=== PATIENT | male | born 1945 | race African-American/Black ===

== ENCOUNTER 2019-11-02 22:26 | Inpatient (IN) ==
[2019-11-02] MEDS ORDERED: Ondansetron ODT 4 MG TAB.RAPDIS SL ONE (22:49)
[2019-11-02 23:19] LABS: Basophils % 0.1 %; Eosinophils # 0.1 K/mcL (0.0-0.6); Eosinophils % 0.9 %; Hematocrit 36.1 % (37.5-50.1); Hemoglobin 10.9 g/dL (12.9-16.9); Immature Granulocytes % 0.3 % (0-4); Lymphocytes # 0.8 K/mcL (0.6-4.6); Lymphocytes % 8.1 %; Mean Corpuscular HGB Conc 30.2 g/dL (31.6-35.5); Mean Corpuscular Hemoglobin 25.5 pg (28.0-33.3); Mean Corpuscular Volume 84.3 fL (83.0-100.0); Mean Platelet Volume 10.4 fL (9.4-12.4); Monocytes % 10.1 %; Neutrophils # 8.1 K/mcL (1.6-8.9); Platelet Count 241 K/mcL (140-400); Red Blood Count 4.28 M/mcL (4.19-5.50); Red Cell Distribution Width 16.2 % (11.5-14.5); Segmented Neutrophils % 80.5 %; White Blood Count 10.1 K/mcL (4.3-11.1)
[2019-11-02 23:37] LABS: Calcium 9.8 mg/dL (8.6-10.3); Potassium 4.7 mEq/L (3.5-5.1)
[2019-11-02 23:45] LABS: INR 1.1; Prothrombin Time 12.6 Seconds (9.4-12.1)
[2019-11-02 23:47] LABS: Activated Partial Thrombo Time 33.5 Seconds (26.0-36.0)
[2019-11-03] MEDS ORDERED: Ondansetron 4 MG/2 ML VIAL IVP PRN (00:39)
[2019-11-03] MEDS ORDERED: Acetaminophen 325 MG TABLET PO PRN (00:39)
[2019-11-03] MEDS ORDERED: *HR* HYDROcodone/Acet 5/325 mg TABLET PO PRN (00:39)
[2019-11-03] MEDS ORDERED: Naloxone 0.4 MG/ML INJ IVP PRN (00:39)
[2019-11-03] MEDS: Melatonin 3 MG TABLET PO SCH ×2 (01:47→20:58)
[2019-11-03 05:32] LABS: Basophils % 0.1 %; Eosinophils # 0.2 K/mcL (0.0-0.6); Hematocrit 32.2 % (37.5-50.1); Hemoglobin 9.8 g/dL (12.9-16.9); Immature Granulocytes % 0.4 % (0-4); Mean Corpuscular HGB Conc 30.4 g/dL (31.6-35.5); Mean Corpuscular Hemoglobin 25.4 pg (28.0-33.3); Mean Corpuscular Volume 83.4 fL (83.0-100.0); Mean Platelet Volume 10.4 fL (9.4-12.4); Monocytes # 0.8 K/mcL (0.0-1.3); Monocytes % 9.8 %; Neutrophils # 6.2 K/mcL (1.6-8.9); Platelet Count 239 K/mcL (140-400); Red Blood Count 3.86 M/mcL (4.19-5.50); Red Cell Distribution Width 15.9 % (11.5-14.5); Segmented Neutrophils % 75.7 %; White Blood Count 8.2 K/mcL (4.3-11.1)
[2019-11-03 05:53] LABS: Calcium 9.2 mg/dL (8.6-10.3); Magnesium 2.1 mg/dL (1.6-2.6); Phosphorous 3.2 mg/dL (2.7-4.5); Potassium 4.8 mEq/L (3.5-5.1)
[2019-11-03] MEDS: *HR* Heparin 5,000 UNIT/ML VIAL SQ SCH ×2 (06:01→17:46)
[2019-11-03 08:39] LABS: Hepatitis B Surface Antigen Nonreactive (Nonreactive)
[2019-11-03] MEDS ORDERED: cloNIDine HCL 0.1 MG TABLET PO SCH (09:00)
[2019-11-03] MEDS: cloNIDine HCL 0.1 MG TABLET PO SCH ×2 (09:42→20:59)
[2019-11-03] MEDS: risperiDONE 1 MG TABLET PO SCH ×2 (09:43→20:59)
[2019-11-03] MEDS: polyethylene glycoL 3350 17 GM POWD.PACK PO SCH (09:51)
[2019-11-03] MEDS: Insulin LISPRO 300 UNITS/3 ML VIAL SQ SCH (16:27)
[2019-11-03] MEDS ORDERED: Insulin LISPRO 300 UNITS/3 ML VIAL SQ SCH (21:00)
[2019-11-04 02:01] LABS: Basophils % 0.3 %; Eosinophils # 0.4 K/mcL (0.0-0.6); Eosinophils % 5.4 %; Hematocrit 29.1 % (37.5-50.1); Immature Granulocytes % 0.5 % (0-4); Lymphocytes # 0.9 K/mcL (0.6-4.6); Lymphocytes % 13.8 %; Mean Corpuscular HGB Conc 30.9 g/dL (31.6-35.5); Mean Corpuscular Hemoglobin 25.6 pg (28.0-33.3); Mean Corpuscular Volume 82.9 fL (83.0-100.0); Mean Platelet Volume 10.6 fL (9.4-12.4); Monocytes % 14.6 %; Neutrophils # 4.3 K/mcL (1.6-8.9); Platelet Count 209 K/mcL (140-400); Red Blood Count 3.51 M/mcL (4.19-5.50); Red Cell Distribution Width 15.5 % (11.5-14.5); Segmented Neutrophils % 65.4 %; White Blood Count 6.5 K/mcL (4.3-11.1)
[2019-11-04 02:21] LABS: Calcium 8.7 mg/dL (8.6-10.3); Phosphorous 4.4 mg/dL (2.7-4.5); Potassium 5.2 mEq/L (3.5-5.1)
[2019-11-04] MEDS: *HR* Heparin 5,000 UNIT/ML VIAL SQ SCH (05:02)
[2019-11-04] MEDS ORDERED: Lidocaine -MPF 4% 5 ML AMPUL ONE (07:19)
[2019-11-04] MEDS ORDERED: Dexamethasone 4 MG/ML VIAL ONE (07:19)
[2019-11-04] MEDS ORDERED: *HR* Succinylcholine 200 MG/10 ML VIAL IVP ONE (07:19)
[2019-11-04] MEDS ORDERED: *HR* Propofol 200 MG/20 ML VIAL IVP ONE (07:19)
[2019-11-04] MEDS ORDERED: *HR* FentaNYL (PF) 100 MCG/2 ML VIAL ONE (07:19)
[2019-11-04] MEDS ORDERED: Lidocaine -MPF 2% 2 ML VIAL ONE (07:19)
[2019-11-04] MEDS ORDERED: Ondansetron 4 MG/2 ML VIAL ONE (07:19)
[2019-11-04] MEDS ORDERED: Ethanol\\Acetic Acid\\Na Ace\\Ben 1,000 ML IRRIG.SOLN IR ONE (07:21)
[2019-11-04] MEDS ORDERED: *HR* Vasopressin 20 UNIT/ML VIAL ONE (07:25)
[2019-11-04] MEDS ORDERED: CeFAZolin Syr 2,000MG/20 ML 2,000 MG/20 ML SYRINGE IVPB ONE (07:45)
[2019-11-04] MEDS ORDERED: *HR* Phenylephrine 10 MG/ML VIAL ONE (08:11)
[2019-11-04] MEDS ORDERED: Albumin Human 5% 12.5 GM/250 ML IV.SOLN ONE (08:15)
[2019-11-04] MEDS ORDERED: *HR* PHENYLEPHRINE 1,000 MCG/10 ML SYRINGE IVP ONE (08:25)
[2019-11-04] MEDS ORDERED: Ringers Solution, Lactated 1,000 ML ONE (09:39)
[2019-11-04] MEDS ORDERED: *HR* Promethazine 25 MG/ML VIAL IVP PRN (09:41)
[2019-11-04] MEDS ORDERED: *HR* Dextrose 50 % in Water (Syg) 50 ML SYRINGE IVP PRN (09:41)
[2019-11-04] MEDS ORDERED: D5% in Water 1,000 ML IVC PRN (09:41)
[2019-11-04] MEDS ORDERED: Ondansetron 4 MG/2 ML VIAL IVP PRN (09:41)
[2019-11-04] MEDS ORDERED: Naloxone 0.4 MG/ML INJ IVP PRN (09:41)
[2019-11-04] MEDS ORDERED: Sennosides 8.6 MG TABLET PO PRN (09:41)
[2019-11-04] MEDS ORDERED: MOM Conc 10 ML UD.LIQ PO PRN (09:41)
[2019-11-04] MEDS ORDERED: *HR* OxyCODONE Immed Rel 5 MG TABLET PO PRN (09:41)
[2019-11-04] MEDS ORDERED: HYDROcodone BIT/Homatropine 5 MG TABLET PO PRN (09:41)
[2019-11-04] MEDS ORDERED: Dextrose Gel 15 GM/37.5 ML TUBE PO PRN ×2 (09:41)
[2019-11-04] MEDS: Multivit/Ca/Min/Fe/FA 1 TAB TABLET PO SCH (11:16)
[2019-11-04] MEDS: Ascorbic Acid 500 MG TABLET PO SCH ×2 (11:16→17:09)
[2019-11-04] MEDS ORDERED: 0.9 % Sodium Chloride 250 ML IVC PRN (12:01)
[2019-11-04] MEDS ORDERED: 0.9 % Sodium Chloride 1,000 ML ONE (12:11)
[2019-11-04] MEDS ORDERED: 0.9 % Sodium Chloride 1,000 ML PRIME SCH (12:15)
[2019-11-04] MEDS: Insulin LISPRO 300 UNITS/3 ML VIAL SQ SCH ×4 (14:06→21:33)
[2019-11-04] MEDS: ceFAZolin 2,000 MG in 0.9 % Sodium Chloride 100 ML IVPB SCH ×2 (17:09→23:20)
[2019-11-04] MEDS: risperiDONE 1 MG TABLET PO SCH ×2 (20:53→21:34)
[2019-11-04] MEDS: Melatonin 3 MG TABLET PO SCH (20:54)
[2019-11-04] MEDS: cloNIDine HCL 0.1 MG TABLET PO SCH ×2 (20:54→21:33)
[2019-11-04] MEDS ORDERED: cloNIDine HCL 0.1 MG TABLET PO SCH (21:00)
[2019-11-04] MEDS: Ringers Solution, Lactated 1,000 ML IVC SCH ×2 (21:33→23:53)
[2019-11-04] MEDS: polyethylene glycoL 3350 17 GM POWD.PACK PO SCH (21:33)
[2019-11-05 02:00] LABS: Basophils % 0.2 %; Eosinophils # 0.1 K/mcL (0.0-0.6); Hematocrit 26.2 % (37.5-50.1); Hemoglobin 8.1 g/dL (12.9-16.9); Immature Granulocytes % 0.7 % (0-4); Lymphocytes # 0.7 K/mcL (0.6-4.6); Lymphocytes % 8.2 %; Mean Corpuscular HGB Conc 30.9 g/dL (31.6-35.5); Mean Corpuscular Hemoglobin 25.6 pg (28.0-33.3); Mean Corpuscular Volume 82.9 fL (83.0-100.0); Mean Platelet Volume 10.9 fL (9.4-12.4); Monocytes # 1.4 K/mcL (0.0-1.3); Monocytes % 17.2 %; Neutrophils # 6.1 K/mcL (1.6-8.9); Platelet Count 193 K/mcL (140-400); Red Blood Count 3.16 M/mcL (4.19-5.50); Red Cell Distribution Width 15.6 % (11.5-14.5); Segmented Neutrophils % 72.7 %; White Blood Count 8.4 K/mcL (4.3-11.1)
[2019-11-05 02:13] LABS: Calcium 8.7 mg/dL (8.6-10.3); Potassium 4.8 mEq/L (3.5-5.1)
[2019-11-05] MEDS: Acetaminophen 325 MG TABLET PO PRN (04:16)
[2019-11-05] MEDS: polyethylene glycoL 3350 17 GM POWD.PACK PO SCH (08:06)
[2019-11-05] MEDS: risperiDONE 1 MG TABLET PO SCH ×2 (08:08→21:29)
[2019-11-05] MEDS: Multivit/Ca/Min/Fe/FA 1 TAB TABLET PO SCH (08:09)
[2019-11-05] MEDS: Ascorbic Acid 500 MG TABLET PO SCH ×2 (08:09→18:24)
[2019-11-05] MEDS: Aspirin Enteric Coated 81 MG Tablet PO SCH ×2 (08:09→08:38)
[2019-11-05] MEDS: cloNIDine HCL 0.1 MG TABLET PO SCH (08:09)
[2019-11-05] MEDS: Insulin LISPRO 300 UNITS/3 ML VIAL SQ SCH ×4 (08:10→21:11)
[2019-11-05] MEDS ORDERED: cloNIDine HCL 0.1 MG TABLET PO PRN (15:27)
[2019-11-05] MEDS ORDERED: 0.9 % Sodium Chloride 1,000 ML IVC SCH (15:30)
[2019-11-05] MEDS: Ringers Solution, Lactated 1,000 ML IVC SCH (21:27)
[2019-11-05] MEDS: Melatonin 3 MG TABLET PO SCH (21:29)
[2019-11-06 00:56] LABS: Basophils % 0.2 %; Eosinophils # 0.4 K/mcL (0.0-0.6); Eosinophils % 4.5 %; Hemoglobin 7.2 g/dL (12.9-16.9); Immature Granulocytes % 0.7 % (0-4); Lymphocytes # 1.2 K/mcL (0.6-4.6); Lymphocytes % 14.3 %; Mean Corpuscular HGB Conc 31.3 g/dL (31.6-35.5); Mean Corpuscular Hemoglobin 25.2 pg (28.0-33.3); Mean Corpuscular Volume 80.4 fL (83.0-100.0); Mean Platelet Volume 10.3 fL (9.4-12.4); Monocytes # 1.7 K/mcL (0.0-1.3); Monocytes % 19.8 %; Neutrophils # 5.1 K/mcL (1.6-8.9); Platelet Count 180 K/mcL (140-400); Red Blood Count 2.86 M/mcL (4.19-5.50); Red Cell Distribution Width 15.5 % (11.5-14.5); Segmented Neutrophils % 60.5 %; White Blood Count 8.4 K/mcL (4.3-11.1)
[2019-11-06 01:13] LABS: Calcium 8.9 mg/dL (8.6-10.3)
[2019-11-06 01:19] LABS: Platelet Estimate Decreased (Normal); Target Cells 2+ (Not Present)
[2019-11-06] MEDS: Ringers Solution, Lactated 1,000 ML IVC SCH (02:56)
[2019-11-06] MEDS ORDERED: 0.9 % Sodium Chloride 250 ML IVC PRN (07:47)
[2019-11-06] MEDS ORDERED: 0.9 % Sodium Chloride 1,000 ML PRIME SCH (08:00)
[2019-11-06] MEDS: Insulin LISPRO 300 UNITS/3 ML VIAL SQ SCH ×4 (08:32→21:19)
[2019-11-06] MEDS: Ascorbic Acid 500 MG TABLET PO SCH ×2 (08:34→17:50)
[2019-11-06] MEDS: Aspirin Enteric Coated 81 MG Tablet PO SCH (08:35)
[2019-11-06] MEDS: risperiDONE 1 MG TABLET PO SCH ×2 (08:36→21:16)
[2019-11-06] MEDS: polyethylene glycoL 3350 17 GM POWD.PACK PO SCH (08:36)
[2019-11-06] MEDS: Multivit/Ca/Min/Fe/FA 1 TAB TABLET PO SCH (08:37)
[2019-11-06 14:02] LABS: Hematocrit 28.7 % (37.5-50.1); Hemoglobin 8.7 g/dL (12.9-16.9)
[2019-11-06] MEDS: Acetaminophen 325 MG TABLET PO PRN (17:51)
[2019-11-06] MEDS: Melatonin 3 MG TABLET PO SCH (21:16)
[2019-11-07 02:30] LABS: Hematocrit 25.9 % (37.5-50.1); Hemoglobin 7.9 g/dL (12.9-16.9)
[2019-11-07 02:50] LABS: Potassium 4.7 mEq/L (3.5-5.1)
[2019-11-07] MEDS: Insulin LISPRO 300 UNITS/3 ML VIAL SQ SCH (07:57)
[2019-11-07] MEDS: Multivit/Ca/Min/Fe/FA 1 TAB TABLET PO SCH (09:19)
[2019-11-07] MEDS: Aspirin Enteric Coated 81 MG Tablet PO SCH (09:20)
[2019-11-07] MEDS: risperiDONE 1 MG TABLET PO SCH (09:20)
[2019-11-07] MEDS: Ascorbic Acid 500 MG TABLET PO SCH (09:20)
[2019-11-07] MEDS: polyethylene glycoL 3350 17 GM POWD.PACK PO SCH (09:20)
[2019-11-07 09:33] LABS: Hematocrit 25.8 % (37.5-50.1)
[2019-11-07 11:28] VITALS: BP 126/77
[2019-11-07] MEDS ORDERED: Insulin LISPRO 300 UNITS/3 ML VIAL SQ SCH ×2 (11:38)
== END 2019-11-07 13:46 | disposition short-term general hospital (02) | DRG 469 ==
LOC: EMEROOARM 22:26 → 3NENU 22:26 → SUATTDRO 11-03 00:10 → 3NENU 11-03 00:51 → SUATTDRO 11-03 10:55
PROVIDERS: ADMIT Family Medicine; ATTEND Family Medicine

== ENCOUNTER 2019-11-18 10:05 | Inpatient (IN) ==
[2019-11-18 10:47] LABS: INR 1.1; Prothrombin Time 12.3 Seconds (9.4-12.1)
[2019-11-18 10:57] LABS: Basophils % 0.4 %; Eosinophils # 0.4 K/mcL (0.0-0.6); Eosinophils % 3.8 %; Hematocrit 24.7 % (37.5-50.1); Hemoglobin 7.2 g/dL (12.9-16.9); Lymphocytes # 1.4 K/mcL (0.6-4.6); Lymphocytes % 14.1 %; Mean Corpuscular HGB Conc 29.1 g/dL (31.6-35.5); Mean Corpuscular Hemoglobin 24.9 pg (28.0-33.3); Mean Corpuscular Volume 85.5 fL (83.0-100.0); Mean Platelet Volume 9.5 fL (9.4-12.4); Monocytes # 1.5 K/mcL (0.0-1.3); Neutrophils # 6.2 K/mcL (1.6-8.9); Platelet Count 482 K/mcL (140-400); Red Blood Count 2.89 M/mcL (4.19-5.50); Red Cell Distribution Width 18.7 % (11.5-14.5); Segmented Neutrophils % 63.7 %; White Blood Count 9.7 K/mcL (4.3-11.1)
[2019-11-18 11:02] LABS: Calcium 9.5 mg/dL (8.6-10.3); Potassium 3.8 mEq/L (3.5-5.1)
[2019-11-18] MEDS ORDERED: Isovue-370 500 ML BOTTLE IVP ONE (11:04)
[2019-11-18] MEDS ORDERED: Pantoprazole 40 MG VIAL IVP ONE (12:16)
[2019-11-18] MEDS ORDERED: Naloxone 0.4 MG/ML INJ IVP PRN (13:23)
[2019-11-18] MEDS ORDERED: cloNIDine HCL 0.1 MG TABLET PO PRN (13:25)
[2019-11-18] MEDS ORDERED: *HR* OxyCODONE Immed Rel 5 MG TABLET PO PRN (13:25)
[2019-11-18] MEDS ORDERED: DOCUSATE SODIUM 100 MG RC PRN (14:44)
[2019-11-18] MEDS ORDERED: Ipratropium/Albuterol Neb 3 ML IH PRN (14:44)
[2019-11-18] MEDS ORDERED: Acetaminophen 650 MG RECTAL SUPP RC PRN (14:44)
[2019-11-18] MEDS ORDERED: Acetaminophen 325 MG TABLET PO PRN (14:44)
[2019-11-18] MEDS ORDERED: *HR* Midazolam HCl 2 MG/2 ML VIAL IVP ONE (15:11)
[2019-11-18] MEDS ORDERED: *HR* FentaNYL (PF) 100 MCG/2 ML VIAL IVP ONE (15:11)
[2019-11-18 20:31] LABS: Hematocrit 24.5 % (37.5-50.1)
[2019-11-18] MEDS: Melatonin 3 MG TABLET PO SCH (20:39)
[2019-11-18] MEDS: Docusate Oral Soln 100 MG/10 ML UDC PO SCH (20:39)
[2019-11-18] MEDS: risperiDONE 1 MG TABLET PO SCH (20:41)
[2019-11-18] MEDS: GALANTAMINE HBR 12 MG PO SCH (20:42)
[2019-11-18] MEDS ORDERED: NON-FORMULARY MEDICATION 1 EACH EACH (Atorvastatin Calcium [Lipitor] 20 MG) PO SCH (21:00)
[2019-11-19 02:58] LABS: Mean Corpuscular Hemoglobin 24.7 pg (28.0-33.3); Mean Platelet Volume 9.6 fL (9.4-12.4); Red Cell Distribution Width 18.8 % (11.5-14.5)
[2019-11-19 02:59] LABS: Hematocrit 24.2 % (37.5-50.1); Mean Corpuscular HGB Conc 28.9 g/dL (31.6-35.5); Mean Corpuscular Volume 85.5 fL (83.0-100.0); Platelet Count 451 K/mcL (140-400); Red Blood Count 2.83 M/mcL (4.19-5.50); White Blood Count 9.5 K/mcL (4.3-11.1)
[2019-11-19 03:14] LABS: Calcium 9.4 mg/dL (8.6-10.3); Magnesium 2.3 mg/dL (1.6-2.6); Potassium 4.3 mEq/L (3.5-5.1)
[2019-11-19] MEDS ORDERED: Pantoprazole 40 MG VIAL IVP SCH (06:00)
[2019-11-19] MEDS: risperiDONE 1 MG TABLET PO SCH (08:11)
[2019-11-19] MEDS: Docusate Oral Soln 100 MG/10 ML UDC PO SCH ×2 (08:12→21:41)
[2019-11-19] MEDS: polyethylene glycoL 3350 17 GM POWD.PACK PO SCH (08:12)
[2019-11-19] MEDS: GALANTAMINE HBR 12 MG PO SCH (08:12)
[2019-11-19] MEDS ORDERED: 0.9 % Sodium Chloride 250 ML ONE (11:23)
[2019-11-19 20:33] LABS: Hematocrit 27.4 % (37.5-50.1); Hemoglobin 8.1 g/dL (12.9-16.9)
[2019-11-19] MEDS: Melatonin 3 MG TABLET PO SCH (21:36)
[2019-11-20 00:43] LABS: Basophils # 0.1 K/mcL (0.0-0.2); Basophils % 0.5 %; Eosinophils # 0.3 K/mcL (0.0-0.6); Eosinophils % 2.9 %; Hematocrit 27.2 % (37.5-50.1); Hemoglobin 8.3 g/dL (12.9-16.9); Immature Granulocytes % 1.9 % (0-4); Lymphocytes # 1.2 K/mcL (0.6-4.6); Lymphocytes % 11.4 %; Mean Corpuscular HGB Conc 30.5 g/dL (31.6-35.5); Mean Corpuscular Hemoglobin 25.8 pg (28.0-33.3); Mean Corpuscular Volume 84.5 fL (83.0-100.0); Mean Platelet Volume 9.4 fL (9.4-12.4); Monocytes # 1.5 K/mcL (0.0-1.3); Monocytes % 14.3 %; Neutrophils # 7.2 K/mcL (1.6-8.9); Nucleated Red Blood Cells 0.3 /100 WBC (0); Platelet Count 415 K/mcL (140-400); Red Blood Count 3.22 M/mcL (4.19-5.50); Red Cell Distribution Width 18.1 % (11.5-14.5); White Blood Count 10.4 K/mcL (4.3-11.1)
[2019-11-20 00:56] LABS: Calcium 9.6 mg/dL (8.6-10.3); Magnesium 2.5 mg/dL (1.6-2.6); Phosphorous 6.3 mg/dL (2.7-4.5)
[2019-11-20] MEDS ORDERED: 0.9 % Sodium Chloride 250 ML IVC PRN (08:18)
[2019-11-20] MEDS ORDERED: *HR* Heparin 10,000 UNIT/10 ML VIAL IV PRN (08:18)
[2019-11-20] MEDS ORDERED: 0.9 % Sodium Chloride 1,000 ML PRIME SCH (08:30)
[2019-11-20] MEDS: polyethylene glycoL 3350 17 GM POWD.PACK PO SCH (08:45)
[2019-11-20] MEDS: Docusate Oral Soln 100 MG/10 ML UDC PO SCH (08:45)
[2019-11-20 15:28] VITALS: BP 140/72
== END 2019-11-20 14:22 | DRG 919 ==
LOC: 2ANU 10:05 → EMEROOARM 10:05 → SUATTDRO 13:23 → 2ANU 13:57
PROVIDERS: ADMIT Internal Medicine; ATTEND Internal Medicine
PROC: IRFLUID (2019-11-18 15:00)

== ENCOUNTER 2019-12-04 04:32 | Inpatient (IN) ==
[2019-12-04 05:29] LABS: Basophils % 0.4 %; Eosinophils # 0.4 K/mcL (0.0-0.6); Eosinophils % 3.5 %; Hemoglobin 7.3 g/dL (12.9-16.9); Immature Granulocytes % 0.7 % (0-4); Lymphocytes # 1.9 K/mcL (0.6-4.6); Lymphocytes % 18.9 %; Mean Corpuscular HGB Conc 29.2 g/dL (31.6-35.5); Mean Corpuscular Hemoglobin 24.5 pg (28.0-33.3); Mean Corpuscular Volume 83.9 fL (83.0-100.0); Mean Platelet Volume 9.9 fL (9.4-12.4); Monocytes # 1.6 K/mcL (0.0-1.3); Monocytes % 15.7 %; Neutrophils # 6.1 K/mcL (1.6-8.9); Nucleated Red Blood Cells 0.2 /100 WBC (0); Platelet Count 332 K/mcL (140-400); Red Blood Count 2.98 M/mcL (4.19-5.50); Red Cell Distribution Width 19.2 % (11.5-14.5); Segmented Neutrophils % 60.8 %
[2019-12-04 05:34] LABS: INR 1.1; Prothrombin Time 12.8 Seconds (9.4-12.1)
[2019-12-04 05:37] LABS: Activated Partial Thrombo Time 36.9 Seconds (26.0-36.0)
[2019-12-04 05:48] LABS: Calcium 9.5 mg/dL (8.6-10.3); Potassium 4.6 mEq/L (3.5-5.1)
[2019-12-04] MEDS ORDERED: Pantoprazole 40 MG VIAL IVP ONE (06:22)
[2019-12-04] MEDS ORDERED: 0.9 % Sodium Chloride 250 ML IVC PRN (06:55)
[2019-12-04] MEDS ORDERED: 0.9 % Sodium Chloride 1,000 ML PRIME SCH (07:00)
[2019-12-04] MEDS ORDERED: Naloxone 0.4 MG/ML INJ IVP PRN (08:06)
[2019-12-04] MEDS ORDERED: Ondansetron 4 MG/2 ML VIAL IVP PRN (08:06)
[2019-12-04] MEDS ORDERED: *HR* Dextrose 50 % in Water (Syg) 50 ML SYRINGE IVP PRN (08:10)
[2019-12-04] MEDS ORDERED: D5% in Water 1,000 ML IVC PRN (08:10)
[2019-12-04] MEDS ORDERED: Dextrose Gel 15 GM/37.5 ML TUBE PO PRN ×2 (08:10)
[2019-12-04 10:23] LABS: ABG Base Excess 8 mEq/L (-2 to 3); ABG HCO3 32 mEq/L (21-27); ABG Oxygen Saturation 96 % (95-98); ABG PCO2 40 mmHg (35-45); ABG PO2 75 mmHg (85-104); ABG TCO2 33 mEq/L (20-26); Blood Gas Modality BiLevel
[2019-12-04] MEDS ORDERED: Ipratropium/Albuterol Neb 3 ML IH PRN (11:25)
[2019-12-04] MEDS: Insulin LISPRO 300 UNITS/3 ML VIAL SQ SCH ×2 (19:04→19:38)
[2019-12-04 19:18] LABS: Hematocrit 23.3 % (37.5-50.1); Hemoglobin 7.1 g/dL (12.9-16.9)
[2019-12-04] MEDS: Docusate Oral Soln 100 MG/10 ML UDC PO SCH (19:54)
[2019-12-04] MEDS: Melatonin 3 MG TABLET PO SCH (19:54)
[2019-12-05] MEDS: Insulin LISPRO 300 UNITS/3 ML VIAL SQ SCH ×4 (01:56→18:22)
[2019-12-05 02:00] LABS: Basophils % 0.4 %; Eosinophils # 0.1 K/mcL (0.0-0.6); Eosinophils % 0.8 %; Hematocrit 22.5 % (37.5-50.1); Hemoglobin 6.9 g/dL (12.9-16.9); Immature Granulocytes % 0.8 % (0-4); Lymphocytes # 1.1 K/mcL (0.6-4.6); Lymphocytes % 11.7 %; Mean Corpuscular HGB Conc 30.7 g/dL (31.6-35.5); Mean Corpuscular Hemoglobin 25.7 pg (28.0-33.3); Mean Corpuscular Volume 83.6 fL (83.0-100.0); Monocytes # 1.6 K/mcL (0.0-1.3); Neutrophils # 6.4 K/mcL (1.6-8.9); Platelet Count 243 K/mcL (140-400); Red Blood Count 2.69 M/mcL (4.19-5.50); Segmented Neutrophils % 69.3 %; White Blood Count 9.3 K/mcL (4.3-11.1)
[2019-12-05 02:22] LABS: Calcium 8.7 mg/dL (8.6-10.3); Potassium 4.1 mEq/L (3.5-5.1)
[2019-12-05 08:14] LABS: Hematocrit 22.6 % (37.5-50.1); Hemoglobin 6.8 g/dL (12.9-16.9)
[2019-12-05] MEDS: Docusate Oral Soln 100 MG/10 ML UDC PO SCH ×2 (08:15→19:47)
[2019-12-05] MEDS: cloNIDine HCL 0.1 MG TABLET PO SCH (08:15)
[2019-12-05] MEDS: polyethylene glycoL 3350 17 GM POWD.PACK PO SCH (08:20)
[2019-12-05] MEDS ORDERED: 0.9 % Sodium Chloride 250 ML ONE (09:00)
[2019-12-05 14:23] LABS: Hematocrit 27.4 % (37.5-50.1)
[2019-12-05 14:24] LABS: Hemoglobin 8.4 g/dL (12.9-16.9)
[2019-12-05] MEDS: Pantoprazole 40 MG VIAL IVP SCH ×2 (15:31→19:42)
[2019-12-05 21:10] LABS: Hematocrit 27.3 % (37.5-50.1); Hemoglobin 8.5 g/dL (12.9-16.9)
[2019-12-06] MEDS: Melatonin 3 MG TABLET PO SCH ×2 (00:21→20:28)
[2019-12-06] MEDS: Insulin LISPRO 300 UNITS/3 ML VIAL SQ SCH ×5 (00:53→20:33)
[2019-12-06 04:43] LABS: Basophils % 0.3 %; Eosinophils # 0.3 K/mcL (0.0-0.6); Eosinophils % 3.2 %; Hematocrit 28.2 % (37.5-50.1); Hemoglobin 8.9 g/dL (12.9-16.9); Immature Granulocytes % 1.3 % (0-4); Lymphocytes # 1.5 K/mcL (0.6-4.6); Lymphocytes % 15.3 %; Mean Corpuscular HGB Conc 31.6 g/dL (31.6-35.5); Mean Corpuscular Hemoglobin 26.9 pg (28.0-33.3); Mean Corpuscular Volume 85.2 fL (83.0-100.0); Monocytes % 20.1 %; Neutrophils # 5.8 K/mcL (1.6-8.9); Platelet Count 208 K/mcL (140-400); Red Blood Count 3.31 M/mcL (4.19-5.50); Red Cell Distribution Width 17.6 % (11.5-14.5); Segmented Neutrophils % 59.8 %; White Blood Count 9.7 K/mcL (4.3-11.1)
[2019-12-06 05:02] LABS: Calcium 8.6 mg/dL (8.6-10.3); Potassium 3.6 mEq/L (3.5-5.1)
[2019-12-06 05:07] LABS: Anisocytosis 1+ (Not Present); Hypochromasia Present (Not Present); Platelet Estimate Normal (Normal)
[2019-12-06] MEDS: Pantoprazole 40 MG VIAL IVP SCH (06:03)
[2019-12-06] MEDS: Docusate Oral Soln 100 MG/10 ML UDC PO SCH ×2 (08:06→20:28)
[2019-12-06] MEDS: polyethylene glycoL 3350 17 GM POWD.PACK PO SCH (08:06)
[2019-12-06] MEDS: cloNIDine HCL 0.1 MG TABLET PO SCH (08:06)
[2019-12-06] MEDS ORDERED: *HR* Midazolam HCl 5 MG/5 ML VIAL IVP ONE ×2 (08:32→08:41)
[2019-12-06] MEDS ORDERED: *HR* FentaNYL (PF) 100 MCG/2 ML VIAL ONE (08:32)
[2019-12-06] MEDS ORDERED: *HR* FentaNYL (PF) 100 MCG/2 ML VIAL IVP ONE (08:41)
[2019-12-06] MEDS ORDERED: Tetracaine/Benzocaine/Butamben 1 SPRAY AEROSOL MM ONE (08:41)
[2019-12-06] MEDS ORDERED: Perflutren Lipid Microsphere 1.3 ML in 0.9 % Sodium Chloride 8.7 ML IVP ONE (10:42)
[2019-12-06] MEDS ORDERED: Isovue-370 500 ML BOTTLE IVP ONE (11:45)
[2019-12-06 12:53] LABS: Carcinoembryonic Antigen 3.2 ng/mL (Less than 5.0)
[2019-12-06] MEDS ORDERED: Isovue-370 500 ML BOTTLE PO ONE (13:42)
[2019-12-07 04:40] LABS: Hematocrit 27.6 % (37.5-50.1); Hemoglobin 8.5 g/dL (12.9-16.9); Mean Corpuscular HGB Conc 30.8 g/dL (31.6-35.5); Mean Corpuscular Hemoglobin 25.4 pg (28.0-33.3); Mean Corpuscular Volume 82.6 fL (83.0-100.0); Mean Platelet Volume 10.6 fL (9.4-12.4); Platelet Count 233 K/mcL (140-400); Red Blood Count 3.34 M/mcL (4.19-5.50); Red Cell Distribution Width 18.1 % (11.5-14.5); White Blood Count 10.2 K/mcL (4.3-11.1)
[2019-12-07 04:56] LABS: Calcium 8.6 mg/dL (8.6-10.3); Potassium 3.9 mEq/L (3.5-5.1)
[2019-12-07] MEDS ORDERED: 0.9 % Sodium Chloride 250 ML IVC PRN (07:56)
[2019-12-07] MEDS: cloNIDine HCL 0.1 MG TABLET PO SCH (08:43)
[2019-12-07] MEDS: Docusate Oral Soln 100 MG/10 ML UDC PO SCH ×2 (08:44→21:06)
[2019-12-07] MEDS: polyethylene glycoL 3350 17 GM POWD.PACK PO SCH (08:44)
[2019-12-07] MEDS: Insulin LISPRO 300 UNITS/3 ML VIAL SQ SCH ×4 (08:44→20:52)
[2019-12-07 11:45] LABS: RBC,Pleural Fluid < 0.002 M/mcL
[2019-12-07 12:18] LABS: Total Protein,Pleural Fluid 3.7 g/dL
[2019-12-07 12:45] LABS: Albumin 2.8 g/dL (3.5-5.7)
[2019-12-07 13:22] LABS: Appearance of Pleural Fl Clear (Clear); Basophils,Pleural Fluid 0 %
[2019-12-07] MEDS: hydrALAZINE 10 MG TABLET PO PRN (17:49)
[2019-12-07] MEDS: Melatonin 3 MG TABLET PO SCH (21:06)
[2019-12-08 02:08] LABS: Hematocrit 29.7 % (37.5-50.1); Hemoglobin 9.1 g/dL (12.9-16.9); Mean Corpuscular HGB Conc 30.6 g/dL (31.6-35.5); Mean Corpuscular Hemoglobin 25.7 pg (28.0-33.3); Mean Corpuscular Volume 83.9 fL (83.0-100.0); Mean Platelet Volume 9.9 fL (9.4-12.4); Platelet Count 242 K/mcL (140-400); Red Blood Count 3.54 M/mcL (4.19-5.50); Red Cell Distribution Width 18.1 % (11.5-14.5); White Blood Count 8.4 K/mcL (4.3-11.1)
[2019-12-08 02:21] LABS: Calcium 8.7 mg/dL (8.6-10.3)
[2019-12-08 02:22] LABS: Total Protein 7.2 g/dL (6.4-8.9)
[2019-12-08 02:23] LABS: % Iron Saturation 32 % (20-55); Iron 50 mcg/dL (65-175); Transferrin 111 mg/dL (203-362)
[2019-12-08] MEDS ORDERED: Regadenoson 0.4 MG/5 ML SYRINGE IVP ONE (06:09)
[2019-12-08] MEDS: Docusate Oral Soln 100 MG/10 ML UDC PO SCH ×2 (10:09→22:44)
[2019-12-08] MEDS: cloNIDine HCL 0.1 MG TABLET PO SCH (10:12)
[2019-12-08] MEDS: polyethylene glycoL 3350 17 GM POWD.PACK PO SCH (10:14)
[2019-12-08] MEDS: Insulin LISPRO 300 UNITS/3 ML VIAL SQ SCH ×4 (10:32→22:46)
[2019-12-08] MEDS: Aspirin 81 MG TAB.CHEW PO SCH (17:07)
[2019-12-08] MEDS: Melatonin 3 MG TABLET PO SCH (22:45)
[2019-12-09 02:58] LABS: Hematocrit 27.7 % (37.5-50.1); Hemoglobin 8.4 g/dL (12.9-16.9); Mean Corpuscular HGB Conc 30.3 g/dL (31.6-35.5); Mean Corpuscular Hemoglobin 25.4 pg (28.0-33.3); Mean Corpuscular Volume 83.7 fL (83.0-100.0); Mean Platelet Volume 10.1 fL (9.4-12.4); Platelet Count 235 K/mcL (140-400); Red Blood Count 3.31 M/mcL (4.19-5.50); Red Cell Distribution Width 18.3 % (11.5-14.5); White Blood Count 7.6 K/mcL (4.3-11.1)
[2019-12-09 03:12] LABS: Calcium 8.5 mg/dL (8.6-10.3); Potassium 3.8 mEq/L (3.5-5.1)
[2019-12-09] MEDS: hydrALAZINE 10 MG TABLET PO PRN (05:31)
[2019-12-09] MEDS: Acetaminophen 325 MG TABLET PO PRN ×2 (05:31→12:59)
[2019-12-09] MEDS: Insulin LISPRO 300 UNITS/3 ML VIAL SQ SCH ×4 (07:55→20:35)
[2019-12-09] MEDS: Docusate Oral Soln 100 MG/10 ML UDC PO SCH ×2 (07:59→20:34)
[2019-12-09] MEDS: polyethylene glycoL 3350 17 GM POWD.PACK PO SCH (07:59)
[2019-12-09] MEDS: Aspirin 81 MG TAB.CHEW PO SCH (08:00)
[2019-12-09] MEDS ORDERED: 0.9 % Sodium Chloride 250 ML IVC PRN (08:12)
[2019-12-09] MEDS ORDERED: *HR* Heparin 10,000 UNIT/10 ML VIAL IV PRN (08:12)
[2019-12-09] MEDS: Melatonin 3 MG TABLET PO SCH (20:34)
[2019-12-10 01:50] LABS: Basophils % 0.3 %; Eosinophils # 0.4 K/mcL (0.0-0.6); Eosinophils % 4.1 %; Hematocrit 26.1 % (37.5-50.1); Hemoglobin 8.1 g/dL (12.9-16.9); Immature Granulocytes % 0.6 % (0-4); Lymphocytes # 1.7 K/mcL (0.6-4.6); Lymphocytes % 18.4 %; Mean Corpuscular Hemoglobin 26.1 pg (28.0-33.3); Mean Corpuscular Volume 84.2 fL (83.0-100.0); Monocytes # 1.5 K/mcL (0.0-1.3); Monocytes % 16.1 %; Neutrophils # 5.4 K/mcL (1.6-8.9); Platelet Count 223 K/mcL (140-400); Red Cell Distribution Width 18.3 % (11.5-14.5); Segmented Neutrophils % 60.5 %
[2019-12-10 02:00] LABS: Calcium 8.5 mg/dL (8.6-10.3); Magnesium 2.1 mg/dL (1.6-2.6); Phosphorous 3.2 mg/dL (2.7-4.5); Potassium 4.1 mEq/L (3.5-5.1)
[2019-12-10] MEDS: polyethylene glycoL 3350 17 GM POWD.PACK PO SCH (08:31)
[2019-12-10] MEDS: Aspirin 81 MG TAB.CHEW PO SCH (08:35)
[2019-12-10] MEDS: Insulin LISPRO 300 UNITS/3 ML VIAL SQ SCH ×3 (08:36→17:15)
[2019-12-10] MEDS ORDERED: 0.9 % Sodium Chloride 250 ML IVC PRN (08:52)
[2019-12-10] MEDS: Docusate Oral Soln 100 MG/10 ML UDC PO SCH ×2 (09:00→22:21)
[2019-12-10] MEDS ORDERED: 0.9 % Sodium Chloride 1,000 ML PRIME SCH (09:00)
[2019-12-10] MEDS: Melatonin 3 MG TABLET PO SCH (22:21)
[2019-12-11 02:27] LABS: Basophils # 0.1 K/mcL (0.0-0.2); Basophils % 0.5 %; Eosinophils # 0.4 K/mcL (0.0-0.6); Eosinophils % 3.8 %; Hemoglobin 9.3 g/dL (12.9-16.9); Immature Granulocytes % 0.4 % (0-4); Lymphocytes # 1.3 K/mcL (0.6-4.6); Lymphocytes % 14.5 %; Mean Corpuscular Hemoglobin 25.8 pg (28.0-33.3); Mean Corpuscular Volume 83.3 fL (83.0-100.0); Mean Platelet Volume 9.6 fL (9.4-12.4); Monocytes # 1.6 K/mcL (0.0-1.3); Monocytes % 17.5 %; Neutrophils # 5.8 K/mcL (1.6-8.9); Platelet Count 226 K/mcL (140-400); Red Cell Distribution Width 17.9 % (11.5-14.5); Segmented Neutrophils % 63.3 %; White Blood Count 9.2 K/mcL (4.3-11.1)
[2019-12-11 02:38] LABS: Calcium 8.8 mg/dL (8.6-10.3); Magnesium 1.9 mg/dL (1.6-2.6); Phosphorous 2.7 mg/dL (2.7-4.5); Potassium 3.6 mEq/L (3.5-5.1)
[2019-12-11 03:06] LABS: INR 1.3; Prothrombin Time 14.2 Seconds (9.4-12.1)
[2019-12-11] MEDS ORDERED: *HR* FentaNYL (PF) 100 MCG/2 ML VIAL ONE (07:08)
[2019-12-11] MEDS ORDERED: *HR* Propofol 200 MG/20 ML VIAL IVP ONE (07:09)
[2019-12-11] MEDS ORDERED: *HR* Succinylcholine 200 MG/10 ML VIAL IVP ONE (07:15)
[2019-12-11] MEDS ORDERED: Lidocaine -MPF 2% 2 ML VIAL ONE (07:15)
[2019-12-11] MEDS ORDERED: *HR* Rocuronium Bromide 50 MG/5 ML VIAL ONE ×2 (07:15→10:54)
[2019-12-11] MEDS ORDERED: EPHEDrine 50 MG/ML VIAL ONE ×2 (07:18→12:49)
[2019-12-11] MEDS ORDERED: Acetaminophen IV 1,000 MG/100 ML INFUS..BTL ONE (07:25)
[2019-12-11] MEDS ORDERED: MetroNIDAZOLE 500 MG/100 ML 500 MG/100 ML BAG IVPB ONE (07:29)
[2019-12-11] MEDS ORDERED: CeFAZolin Syr 2,000MG/20 ML 2,000 MG/20 ML SYRINGE IVPB ONE (07:29)
[2019-12-11] MEDS: polyethylene glycoL 3350 17 GM POWD.PACK PO SCH (08:00)
[2019-12-11] MEDS: Aspirin 81 MG TAB.CHEW PO SCH (08:00)
[2019-12-11] MEDS: Docusate Oral Soln 100 MG/10 ML UDC PO SCH ×2 (08:00→20:21)
[2019-12-11] MEDS: Insulin LISPRO 300 UNITS/3 ML VIAL SQ SCH ×3 (08:08→17:55)
[2019-12-11] MEDS ORDERED: Ondansetron 4 MG/2 ML VIAL ONE ×2 (08:39→10:59)
[2019-12-11] MEDS ORDERED: Dexamethasone 4 MG/ML VIAL ONE (08:39)
[2019-12-11] MEDS ORDERED: *HR* PHENYLEPHRINE 1,000 MCG/10 ML SYRINGE IVP ONE (10:22)
[2019-12-11] MEDS ORDERED: *HR* Phenylephrine 10 MG/ML VIAL ONE (10:38)
[2019-12-11] MEDS ORDERED: *HR* HYDROMORPHONE 2 MG/ML VIAL ONE (11:31)
[2019-12-11] MEDS ORDERED: Neostigmine Methylsulfate 3 MG/3 ML SYRINGE ONE ×2 (11:44→12:07)
[2019-12-11] MEDS ORDERED: *HR* Labetalol 20 MG/4 ML SYRINGE IVP ONE (12:07)
[2019-12-11] MEDS ORDERED: Dextrose Gel 15 GM/37.5 ML TUBE PO PRN ×2 (12:44)
[2019-12-11] MEDS ORDERED: *HR* OxyCODONE Immed Rel 5 MG TABLET PO PRN (12:44)
[2019-12-11] MEDS ORDERED: 0.9 % Sodium Chloride 1,000 ML PRIME SCH (12:44)
[2019-12-11] MEDS ORDERED: hydrALAZINE 10 MG TABLET PO PRN (12:44)
[2019-12-11] MEDS ORDERED: Naloxone 0.4 MG/ML INJ IVP PRN (12:44)
[2019-12-11] MEDS ORDERED: Ondansetron 4 MG/2 ML VIAL IVP PRN (12:44)
[2019-12-11] MEDS ORDERED: D5% in Water 1,000 ML IVC PRN (12:44)
[2019-12-11] MEDS ORDERED: Ipratropium/Albuterol Neb 3 ML IH PRN (12:44)
[2019-12-11] MEDS ORDERED: *HR* Dextrose 50 % in Water (Syg) 50 ML SYRINGE IVP PRN (12:44)
[2019-12-11] MEDS ORDERED: 0.9 % Sodium Chloride 500 ML ONE ×2 (12:52)
[2019-12-11] MEDS ORDERED: Isovue-370 500 ML BOTTLE IVP ONE (13:17)
[2019-12-11 13:18] LABS: VBG Base Excess -1 mEq/L; VBG Chloride 98 mEq/L (98-107); VBG Glucose 192 mg/dl (65-95); VBG HCO3 32 mEq/L (21-27); VBG Ionized Calcium 1.15 mmol/L (1.15-1.35); VBG Oxygen Saturation 72 %; VBG PCO2 110 mmHg (41-51); VBG PH 7.07 pH Units (7.32-7.42); VBG PO2 55 mmHg (25-50); VBG Total CO2 36 mEq/L
[2019-12-11 14:02] LABS: VBG Base Excess -12 mEq/L; VBG Chloride 121 mEq/L (98-107); VBG Glucose 73 mg/dl (65-95); VBG HCO3 14 mEq/L (21-27); VBG Ionized Calcium 0.66 mmol/L (1.15-1.35); VBG Oxygen Saturation 76 %; VBG PCO2 31 mmHg (41-51); VBG PH 7.26 pH Units (7.32-7.42); VBG PO2 46 mmHg (25-50); VBG Total CO2 15 mEq/L
[2019-12-11 14:08] LABS: Basophils % 0.4 %; Hemoglobin 10.4 g/dL (12.9-16.9); Red Cell Distribution Width 18.2 % (11.5-14.5)
[2019-12-11 14:09] LABS: Basophils # 0.1 K/mcL (0.0-0.2); Eosinophils # 0.1 K/mcL (0.0-0.6); Eosinophils % 0.8 %; Hematocrit 35.6 % (37.5-50.1); Immature Granulocytes % 1.5 % (0-4); Lymphocytes % 25.5 %; Mean Corpuscular HGB Conc 29.2 g/dL (31.6-35.5); Mean Corpuscular Hemoglobin 25.8 pg (28.0-33.3); Mean Corpuscular Volume 88.3 fL (83.0-100.0); Mean Platelet Volume 10.5 fL (9.4-12.4); Monocytes # 0.5 K/mcL (0.0-1.3); Monocytes % 3.8 %; Neutrophils # 9.5 K/mcL (1.6-8.9); Nucleated Red Blood Cells 0.1 /100 WBC (0); Platelet Count 279 K/mcL (140-400); Red Blood Count 4.03 M/mcL (4.19-5.50); White Blood Count 13.9 K/mcL (4.3-11.1)
[2019-12-11 14:13] LABS: Lymphocytes # 3.5 K/mcL (0.6-4.6)
[2019-12-11 14:53] LABS: Albumin 3.5 g/dL (3.5-5.7); Albumin/Globulin Ratio 0.8 (1.1-2.2); Bilirubin,Total 0.6 mg/dL (0.3-1.0); Calcium 8.6 mg/dL (8.6-10.3); Globulin 4.6 g/dL (2.4-3.5); Potassium 4.4 mEq/L (3.5-5.1); Total Protein 8.1 g/dL (6.4-8.9)
[2019-12-11 15:05] LABS: VBG Base Excess 3 mEq/L; VBG Chloride 98 mEq/L (98-107); VBG Glucose 164 mg/dl (65-95); VBG HCO3 30 mEq/L (21-27); VBG Ionized Calcium 0.95 mmol/L (1.15-1.35); VBG Oxygen Saturation 77 %; VBG PCO2 54 mmHg (41-51); VBG PH 7.35 pH Units (7.32-7.42); VBG PO2 45 mmHg (25-50); VBG Total CO2 31 mEq/L
[2019-12-11 16:11] LABS: ABG Base Excess 4 mEq/L (-2 to 3); ABG HCO3 29 mEq/L (21-27); ABG Oxygen Saturation 99 % (95-98); ABG PCO2 45 mmHg (35-45); ABG PH 7.42 pH Units (7.32-7.45); ABG PO2 118 mmHg (85-104); ABG TCO2 31 mEq/L (20-26); Blood Gas VT 450 cc
[2019-12-11 16:18] LABS: Basophils % 0.2 %; Eosinophils % 0.1 %; Hematocrit 29.6 % (37.5-50.1); Hemoglobin 8.9 g/dL (12.9-16.9); Immature Granulocytes % 0.9 % (0-4); Lymphocytes # 0.6 K/mcL (0.6-4.6); Lymphocytes % 4.4 %; Mean Corpuscular HGB Conc 30.1 g/dL (31.6-35.5); Mean Corpuscular Hemoglobin 25.7 pg (28.0-33.3); Mean Corpuscular Volume 85.5 fL (83.0-100.0); Monocytes # 0.5 K/mcL (0.0-1.3); Monocytes % 3.6 %; Neutrophils # 11.5 K/mcL (1.6-8.9); Platelet Count 232 K/mcL (140-400); Red Blood Count 3.46 M/mcL (4.19-5.50); Red Cell Distribution Width 17.8 % (11.5-14.5); Segmented Neutrophils % 90.8 %; White Blood Count 12.7 K/mcL (4.3-11.1)
[2019-12-11 16:38] LABS: Calcium 8.2 mg/dL (8.6-10.3); Potassium 4.1 mEq/L (3.5-5.1)
[2019-12-11] MEDS ORDERED: Insulin LISPRO 300 UNITS/3 ML VIAL SQ SCH ×2 (17:00→21:00)
[2019-12-11] MEDS: Melatonin 3 MG TABLET PO SCH (20:21)
[2019-12-11 22:19] LABS: Hematocrit 30.1 % (37.5-50.1)
[2019-12-12] MEDS: Insulin LISPRO 300 UNITS/3 ML VIAL SQ SCH ×5 (00:50→21:12)
[2019-12-12 04:42] LABS: VBG HCO3 29 mEq/L (21-27); VBG PCO2 40 mmHg (41-51); VBG PH 7.47 pH Units (7.32-7.42); VBG PO2 149 mmHg (25-50)
[2019-12-12 04:44] LABS: Basophils % 0.1 %; Eosinophils % 0.1 %; Hematocrit 26.9 % (37.5-50.1); Hemoglobin 8.4 g/dL (12.9-16.9); Immature Granulocytes % 0.8 % (0-4); Lymphocytes # 0.9 K/mcL (0.6-4.6); Lymphocytes % 7.7 %; Mean Corpuscular HGB Conc 31.2 g/dL (31.6-35.5); Mean Corpuscular Hemoglobin 26.2 pg (28.0-33.3); Mean Corpuscular Volume 83.8 fL (83.0-100.0); Mean Platelet Volume 10.2 fL (9.4-12.4); Monocytes # 1.1 K/mcL (0.0-1.3); Monocytes % 9.8 %; Neutrophils # 9.4 K/mcL (1.6-8.9); Platelet Count 256 K/mcL (140-400); Red Blood Count 3.21 M/mcL (4.19-5.50); Red Cell Distribution Width 17.8 % (11.5-14.5); Segmented Neutrophils % 81.5 %; White Blood Count 11.5 K/mcL (4.3-11.1)
[2019-12-12 05:02] LABS: Calcium 8.6 mg/dL (8.6-10.3); Potassium 4.8 mEq/L (3.5-5.1)
[2019-12-12] MEDS: Aspirin 81 MG TAB.CHEW PO SCH (08:34)
[2019-12-12] MEDS: Acetaminophen 325 MG TABLET PO PRN (08:34)
[2019-12-12] MEDS: Docusate Oral Soln 100 MG/10 ML UDC PO SCH ×2 (08:35→21:11)
[2019-12-12] MEDS ORDERED: 0.9 % Sodium Chloride 250 ML IVC PRN (09:37)
[2019-12-12] MEDS ORDERED: *HR* LORazepam 2 MG/ML VIAL IVP ONE (19:56)
[2019-12-12] MEDS: Melatonin 3 MG TABLET PO SCH (21:11)
[2019-12-13 07:12] LABS: Basophils % 0.3 %; Eosinophils # 0.2 K/mcL (0.0-0.6); Hematocrit 29.3 % (37.5-50.1); Hemoglobin 8.8 g/dL (12.9-16.9); Immature Granulocytes % 1.2 % (0-4); Lymphocytes # 1.3 K/mcL (0.6-4.6); Mean Corpuscular Hemoglobin 25.7 pg (28.0-33.3); Mean Corpuscular Volume 85.4 fL (83.0-100.0); Mean Platelet Volume 10.1 fL (9.4-12.4); Monocytes # 1.3 K/mcL (0.0-1.3); Monocytes % 12.5 %; Neutrophils # 7.3 K/mcL (1.6-8.9); Platelet Count 243 K/mcL (140-400); Red Blood Count 3.43 M/mcL (4.19-5.50); White Blood Count 10.2 K/mcL (4.3-11.1)
[2019-12-13 07:38] LABS: Calcium 8.9 mg/dL (8.6-10.3); Potassium 3.5 mEq/L (3.5-5.1)
[2019-12-13] MEDS: Insulin LISPRO 300 UNITS/3 ML VIAL SQ SCH ×4 (08:25→20:56)
[2019-12-13] MEDS: Aspirin 81 MG TAB.CHEW PO SCH (08:55)
[2019-12-13] MEDS: Acetaminophen 325 MG TABLET PO PRN (08:55)
[2019-12-13] MEDS: Docusate Oral Soln 100 MG/10 ML UDC PO SCH ×2 (09:04→20:46)
[2019-12-13] MEDS ORDERED: *HR* LORazepam 2 MG/ML VIAL IVP ONE ×2 (19:47→23:38)
[2019-12-13] MEDS: Melatonin 3 MG TABLET PO SCH (20:45)
[2019-12-14] MEDS ORDERED: 0.9 % Sodium Chloride 250 ML IVC PRN (06:41)
[2019-12-14 07:33] LABS: Basophils % 0.3 %; Eosinophils # 0.5 K/mcL (0.0-0.6); Eosinophils % 4.9 %; Hematocrit 28.2 % (37.5-50.1); Hemoglobin 8.5 g/dL (12.9-16.9); Immature Granulocytes % 1.1 % (0-4); Lymphocytes # 1.2 K/mcL (0.6-4.6); Lymphocytes % 13.6 %; Mean Corpuscular HGB Conc 30.1 g/dL (31.6-35.5); Mean Corpuscular Hemoglobin 25.8 pg (28.0-33.3); Mean Corpuscular Volume 85.5 fL (83.0-100.0); Mean Platelet Volume 10.1 fL (9.4-12.4); Monocytes # 1.3 K/mcL (0.0-1.3); Monocytes % 13.8 %; Platelet Count 256 K/mcL (140-400); Red Cell Distribution Width 17.5 % (11.5-14.5); Segmented Neutrophils % 66.3 %; White Blood Count 9.1 K/mcL (4.3-11.1)
[2019-12-14 07:49] LABS: Potassium 3.7 mEq/L (3.5-5.1)
[2019-12-14] MEDS: Insulin LISPRO 300 UNITS/3 ML VIAL SQ SCH ×4 (09:25→22:26)
[2019-12-14] MEDS: Docusate Oral Soln 100 MG/10 ML UDC PO SCH ×2 (09:30→20:38)
[2019-12-14] MEDS: Aspirin 81 MG TAB.CHEW PO SCH (09:30)
[2019-12-14] MEDS ORDERED: *HR* LORazepam 2 MG/ML VIAL IVP PRN (20:08)
[2019-12-14] MEDS: Melatonin 3 MG TABLET PO SCH (20:37)
[2019-12-15 05:21] LABS: Basophils # 0.1 K/mcL (0.0-0.2); Basophils % 0.7 %; Eosinophils # 0.6 K/mcL (0.0-0.6); Eosinophils % 5.6 %; Hematocrit 32.2 % (37.5-50.1); Hemoglobin 9.6 g/dL (12.9-16.9); Immature Granulocytes % 2.1 % (0-4); Lymphocytes # 1.6 K/mcL (0.6-4.6); Lymphocytes % 16.6 %; Mean Corpuscular HGB Conc 29.8 g/dL (31.6-35.5); Mean Corpuscular Hemoglobin 25.7 pg (28.0-33.3); Mean Corpuscular Volume 86.3 fL (83.0-100.0); Mean Platelet Volume 9.9 fL (9.4-12.4); Monocytes # 1.5 K/mcL (0.0-1.3); Monocytes % 15.3 %; Neutrophils # 5.8 K/mcL (1.6-8.9); Nucleated Red Blood Cells 0.2 /100 WBC (0); Platelet Count 265 K/mcL (140-400); Red Blood Count 3.73 M/mcL (4.19-5.50); Red Cell Distribution Width 17.7 % (11.5-14.5); Segmented Neutrophils % 59.7 %; White Blood Count 9.8 K/mcL (4.3-11.1)
[2019-12-15 05:40] LABS: Calcium 9.3 mg/dL (8.6-10.3); Potassium 3.7 mEq/L (3.5-5.1)
[2019-12-15] MEDS: Insulin LISPRO 300 UNITS/3 ML VIAL SQ SCH (10:04)
[2019-12-15] MEDS: Docusate Oral Soln 100 MG/10 ML UDC PO SCH (10:11)
[2019-12-15] MEDS: Aspirin 81 MG TAB.CHEW PO SCH (10:12)
[2019-12-15 11:13] VITALS: BP 134/70
== END 2019-12-15 13:07 | DRG 329 ==
LOC: 2ANU 04:32 → EMEROOARM 04:32 → SUATTDRO 06:55 → 3NENU 07:56 → 2ANU 12-06 13:44 → SUATTDRO 12-06 13:45
PROVIDERS: ADMIT Student in an Organized Health Care Education/Training Program; ATTEND Internal Medicine
PROC: ENDOCBX (2019-12-06 10:00)

== ENCOUNTER 2020-01-26 01:05 | Inpatient (IN) ==
[2020-01-26] MEDS ORDERED: Isovue-370 500 ML BOTTLE IVP ONE (01:12)
[2020-01-26 02:05] LABS: Hemoglobin 10.3 g/dL (12.9-16.9); Mean Corpuscular HGB Conc 29.4 g/dL (31.6-35.5); Mean Corpuscular Hemoglobin 24.7 pg (28.0-33.3); Mean Corpuscular Volume 83.9 fL (83.0-100.0); Mean Platelet Volume 9.8 fL (9.4-12.4); Platelet Count 236 K/mcL (140-400); Red Blood Count 4.17 M/mcL (4.19-5.50); Red Cell Distribution Width 17.1 % (11.5-14.5); White Blood Count 5.5 K/mcL (4.3-11.1)
[2020-01-26 02:13] LABS: INR 1.1; Prothrombin Time 12.3 Seconds (9.4-12.1)
[2020-01-26 02:16] LABS: Activated Partial Thrombo Time 35.7 Seconds (26.0-36.0)
[2020-01-26 02:29] LABS: Calcium 9.5 mg/dL (8.6-10.3)
[2020-01-26 02:30] LABS: Troponin I 0.03 ng/mL (< 0.04)
[2020-01-26] MEDS ORDERED: Aspirin 325 MG TABLET PO ONE (02:59)
[2020-01-26] MEDS ORDERED: Naloxone 0.4 MG/ML INJ IVP PRN (04:15)
[2020-01-26] MEDS ORDERED: Ipratropium/Albuterol Neb 3 ML IH PRN (04:18)
[2020-01-26] MEDS: Docusate Oral Soln 100 MG/10 ML UDC PO SCH ×2 (09:14→21:13)
[2020-01-26] MEDS: polyethylene glycoL 3350 17 GM POWD.PACK PO SCH (09:14)
[2020-01-26] MEDS: Aspirin 81 MG TAB.CHEW PO SCH (09:18)
[2020-01-26] MEDS: risperiDONE 1 MG TABLET PO SCH ×2 (09:19→21:13)
[2020-01-26] MEDS: Cholecalciferol (D-3) 1,000 UNIT (25MCG) TABLET PO SCH (09:19)
[2020-01-26] MEDS: cloNIDine HCL 0.1 MG TABLET PO SCH (11:53)
[2020-01-26] MEDS: *HR* Heparin 5,000 UNIT/ML VIAL SQ SCH (16:32)
[2020-01-26] MEDS ORDERED: Melatonin 3 MG TABLET PO SCH (21:00)
[2020-01-27 03:58] LABS: Hematocrit 30.5 % (37.5-50.1); Mean Corpuscular HGB Conc 29.5 g/dL (31.6-35.5); Mean Corpuscular Hemoglobin 24.2 pg (28.0-33.3); Mean Platelet Volume 9.5 fL (9.4-12.4); Platelet Count 210 K/mcL (140-400); Red Blood Count 3.72 M/mcL (4.19-5.50); Red Cell Distribution Width 16.5 % (11.5-14.5); White Blood Count 4.7 K/mcL (4.3-11.1)
[2020-01-27 04:17] LABS: Calcium 9.9 mg/dL (8.6-10.3); Potassium 5.9 mEq/L (3.5-5.1)
[2020-01-27] MEDS: *HR* Heparin 5,000 UNIT/ML VIAL SQ SCH (05:37)
[2020-01-27] MEDS ORDERED: 0.9 % Sodium Chloride 250 ML IVC PRN (07:19)
[2020-01-27] MEDS ORDERED: 0.9 % Sodium Chloride 1,000 ML PRIME SCH (07:30)
[2020-01-27] MEDS: Docusate Oral Soln 100 MG/10 ML UDC PO SCH (11:53)
[2020-01-27 12:39] VITALS: BP 102/60
[2020-01-27] MEDS: Aspirin 81 MG TAB.CHEW PO SCH (12:47)
[2020-01-27] MEDS: risperiDONE 1 MG TABLET PO SCH (12:47)
[2020-01-27] MEDS: cloNIDine HCL 0.1 MG TABLET PO SCH (12:47)
[2020-01-27] MEDS: polyethylene glycoL 3350 17 GM POWD.PACK PO SCH (12:48)
[2020-01-27] MEDS: Cholecalciferol (D-3) 1,000 UNIT (25MCG) TABLET PO SCH (12:49)
== END 2020-01-27 14:10 | disposition other institution (70) | DRG 69 ==
LOC: 2ANU 01:05 → EMEROOARM 01:05 → 2ANU 03:52 → SUATTDRO 10:24
PROVIDERS: ADMIT Family Medicine; ATTEND Family Medicine

== ENCOUNTER 2020-05-31 13:11 | Inpatient (IN) ==
[2020-05-31 13:49] LABS: Basophils % 0.4 %; Eosinophils # 0.3 K/mcL (0.0-0.6); Eosinophils % 3.5 %; Hemoglobin 9.4 g/dL (12.9-16.9); Immature Granulocytes % 0.5 % (0-4); Lymphocytes # 1.8 K/mcL (0.6-4.6); Lymphocytes % 24.7 %; Mean Corpuscular HGB Conc 29.4 g/dL (31.6-35.5); Mean Corpuscular Hemoglobin 25.6 pg (28.0-33.3); Mean Corpuscular Volume 87.2 fL (83.0-100.0); Monocytes # 1.1 K/mcL (0.0-1.3); Monocytes % 15.1 %; Neutrophils # 4.1 K/mcL (1.6-8.9); Nucleated Red Blood Cells 0.3 /100 WBC (0); Platelet Count 222 K/mcL (140-400); Red Blood Count 3.67 M/mcL (4.19-5.50); Red Cell Distribution Width 15.6 % (11.5-14.5); Segmented Neutrophils % 55.8 %; White Blood Count 7.3 K/mcL (4.3-11.1)
[2020-05-31] MEDS ORDERED: 0.9 % Sodium Chloride 1,000 ML IVC ONE (14:10)
[2020-05-31 14:11] LABS: Albumin 3.9 g/dL (3.5-5.7); Albumin/Globulin Ratio 1.1 (1.1-2.2); Bilirubin,Total 0.4 mg/dL (0.3-1.0); Calcium 9.1 mg/dL (8.6-10.3); Globulin 3.7 g/dL (2.4-3.5); Potassium 4.8 mEq/L (3.5-5.1); Total Protein 7.6 g/dL (6.4-8.9); Troponin I 0.03 ng/mL (< 0.04)
[2020-05-31] MEDS ORDERED: 0.9 % Sodium Chloride 1,000 ML ONE (14:11)
[2020-05-31] MEDS ORDERED: Naloxone 0.4 MG/ML INJ IVP PRN (16:26)
[2020-05-31 19:07] LABS: Adenovirus Not Detected (Not Detect); Bordetella Pertussis Not Detected (Not Detect); Chlamydophila pneumoniae Not Detected (Not Detect); Coronavirus 229E Not Detected (Not Detect); Coronavirus HKU1 Not Detected (Not Detect); Coronavirus NL63 Not Detected (Not Detect); Coronavirus OC43 Not Detected (Not Detect); Human Metapneumovirus Not Detected (Not Detect); Human Rhinovirus/Enterovirus Not Detected (Not Detect); Influenza A Subtype 2009 H1 Not Detected (Not Detect); Influenza B Not Detected (Not Detect); Mycoplasma pneumoniae Not Detected (Not Detect); Parainfluenza Virus 1 Not Detected (Not Detect); Parainfluenza Virus 2 Not Detected (Not Detect); Parainfluenza Virus 3 Not Detected (Not Detect); Parainfluenza Virus 4 Not Detected (Not Detect); Respiratory Syncytial Virus Not Detected (Not Detect); SARS-CoV-2 Not Detected (Not Detect)
[2020-05-31] MEDS ORDERED: Acetaminophen 325 MG TABLET PO PRN (20:36)
[2020-05-31] MEDS ORDERED: DOCUSATE SODIUM 283 MG RC PRN (20:36)
[2020-05-31] MEDS ORDERED: Ipratropium/Albuterol Neb 3 ML IH PRN (20:36)
[2020-05-31] MEDS ORDERED: Acetaminophen 325 MG TABLET PO SCH (21:00)
[2020-05-31] MEDS: Melatonin 3 MG TABLET PO SCH (21:13)
[2020-05-31] MEDS: risperiDONE 1 MG TABLET PO SCH (21:14)
[2020-05-31] MEDS: Docusate Oral Soln 100 MG/10 ML UDC PO SCH (21:14)
[2020-05-31] MEDS: rOPINIRole 0.25 MG TABLET PO SCH (21:14)
[2020-05-31] MEDS: Acetaminophen 325 MG TABLET PO SCH (21:16)
[2020-06-01] MEDS: *HR* Heparin 5,000 UNIT/ML VIAL SQ SCH ×2 (05:44→16:32)
[2020-06-01 07:14] LABS: Basophils % 0.6 %; Eosinophils # 0.3 K/mcL (0.0-0.6); Eosinophils % 4.9 %; Immature Granulocytes % 0.5 % (0-4); Lymphocytes # 1.3 K/mcL (0.6-4.6); Lymphocytes % 19.4 %; Mean Corpuscular Hemoglobin 25.7 pg (28.0-33.3); Mean Corpuscular Volume 85.7 fL (83.0-100.0); Mean Platelet Volume 9.6 fL (9.4-12.4); Monocytes # 0.8 K/mcL (0.0-1.3); Monocytes % 12.8 %; Platelet Count 199 K/mcL (140-400); Red Cell Distribution Width 15.5 % (11.5-14.5); Segmented Neutrophils % 61.8 %; White Blood Count 6.5 K/mcL (4.3-11.1)
[2020-06-01 07:32] LABS: Calcium 9.1 mg/dL (8.6-10.3)
[2020-06-01] MEDS: Renal Vitamin 1 CAP CAPSULE PO SCH (08:16)
[2020-06-01] MEDS: cloNIDine HCL 0.1 MG TABLET PO SCH (08:17)
[2020-06-01] MEDS: polyethylene glycoL 3350 17 GM POWD.PACK PO SCH (08:17)
[2020-06-01] MEDS: Docusate Oral Soln 100 MG/10 ML UDC PO SCH ×2 (08:17→20:42)
[2020-06-01] MEDS: risperiDONE 1 MG TABLET PO SCH ×2 (08:18→20:43)
[2020-06-01] MEDS: Acetaminophen 325 MG TABLET PO SCH ×2 (08:18→20:42)
[2020-06-01] MEDS ORDERED: 0.9 % Sodium Chloride 250 ML IVC PRN (08:18)
[2020-06-01] MEDS ORDERED: 0.9 % Sodium Chloride 1,000 ML PRIME SCH (08:30)
[2020-06-01] MEDS: rOPINIRole 0.25 MG TABLET PO SCH (20:42)
[2020-06-01] MEDS: Melatonin 3 MG TABLET PO SCH (20:43)
[2020-06-01] MEDS ORDERED: Gabapentin 300 MG CAPSULE PO ONE (23:54)
[2020-06-01] MEDS ORDERED: Acetaminophen 325 MG TABLET PO ONE (23:54)
[2020-06-02 01:51] LABS: Basophils # 0.1 K/mcL (0.0-0.2); Basophils % 0.7 %; Eosinophils # 0.3 K/mcL (0.0-0.6); Eosinophils % 3.9 %; Hematocrit 31.1 % (37.5-50.1); Hemoglobin 9.3 g/dL (12.9-16.9); Immature Granulocytes % 0.4 % (0-4); Lymphocytes % 15.2 %; Mean Corpuscular HGB Conc 29.9 g/dL (31.6-35.5); Mean Corpuscular Hemoglobin 25.9 pg (28.0-33.3); Mean Corpuscular Volume 86.6 fL (83.0-100.0); Mean Platelet Volume 10.4 fL (9.4-12.4); Monocytes % 14.9 %; Neutrophils # 4.4 K/mcL (1.6-8.9); Platelet Count 223 K/mcL (140-400); Red Blood Count 3.59 M/mcL (4.19-5.50); Red Cell Distribution Width 15.2 % (11.5-14.5); Segmented Neutrophils % 64.9 %; White Blood Count 6.7 K/mcL (4.3-11.1)
[2020-06-02 02:08] LABS: Potassium 4.2 mEq/L (3.5-5.1)
[2020-06-02 02:10] LABS: % Iron Saturation 29 % (20-55); Iron 56 mcg/dL (65-175); Transferrin 138 mg/dL (203-362)
[2020-06-02 02:39] LABS: Ferritin > 1500 ng/mL (20-250); Folate > 22.3 ng/mL (3.0-16.0); Vitamin B12 996 pg/mL (250-1100)
[2020-06-02] MEDS: *HR* Heparin 5,000 UNIT/ML VIAL SQ SCH ×2 (04:46→18:06)
[2020-06-02] MEDS: polyethylene glycoL 3350 17 GM POWD.PACK PO SCH (09:56)
[2020-06-02] MEDS: risperiDONE 1 MG TABLET PO SCH ×2 (09:56→22:27)
[2020-06-02] MEDS: Acetaminophen 325 MG TABLET PO SCH ×2 (09:56→22:27)
[2020-06-02] MEDS: Renal Vitamin 1 CAP CAPSULE PO SCH (09:56)
[2020-06-02] MEDS: Docusate Oral Soln 100 MG/10 ML UDC PO SCH ×2 (09:56→22:28)
[2020-06-02] MEDS: cloNIDine HCL 0.1 MG TABLET PO SCH (11:53)
[2020-06-02] MEDS: rOPINIRole 0.25 MG TABLET PO SCH (22:27)
[2020-06-02] MEDS: Melatonin 3 MG TABLET PO SCH (22:28)
[2020-06-03 05:57] LABS: Hematocrit 28.7 % (37.5-50.1); Hemoglobin 8.4 g/dL (12.9-16.9); Mean Corpuscular HGB Conc 29.3 g/dL (31.6-35.5); Mean Corpuscular Hemoglobin 25.1 pg (28.0-33.3); Mean Corpuscular Volume 85.7 fL (83.0-100.0); Mean Platelet Volume 10.4 fL (9.4-12.4); Platelet Count 215 K/mcL (140-400); Red Blood Count 3.35 M/mcL (4.19-5.50); Red Cell Distribution Width 14.8 % (11.5-14.5); White Blood Count 7.1 K/mcL (4.3-11.1)
[2020-06-03] MEDS: *HR* Heparin 5,000 UNIT/ML VIAL SQ SCH ×2 (06:12→17:39)
[2020-06-03 06:19] LABS: Calcium 8.6 mg/dL (8.6-10.3); Potassium 4.9 mEq/L (3.5-5.1)
[2020-06-03] MEDS ORDERED: 0.9 % Sodium Chloride 1,000 ML PRIME SCH (07:15)
[2020-06-03] MEDS: Docusate Oral Soln 100 MG/10 ML UDC PO SCH ×2 (12:11→22:14)
[2020-06-03] MEDS: polyethylene glycoL 3350 17 GM POWD.PACK PO SCH (12:11)
[2020-06-03] MEDS: Renal Vitamin 1 CAP CAPSULE PO SCH (12:12)
[2020-06-03] MEDS: Acetaminophen 325 MG TABLET PO SCH ×2 (12:12→22:18)
[2020-06-03] MEDS: risperiDONE 1 MG TABLET PO SCH ×2 (12:12→22:18)
[2020-06-03] MEDS: cloNIDine HCL 0.1 MG TABLET PO SCH (12:12)
[2020-06-03] MEDS: Melatonin 3 MG TABLET PO SCH (22:16)
[2020-06-03] MEDS: rOPINIRole 0.25 MG TABLET PO SCH (22:20)
[2020-06-04] MEDS: 0.9 % Sodium Chloride 250 ML IVC PRN ×2 (00:09→12:21)
[2020-06-04 03:12] LABS: Hematocrit 27.5 % (37.5-50.1); Hemoglobin 8.3 g/dL (12.9-16.9); Mean Corpuscular HGB Conc 30.2 g/dL (31.6-35.5); Mean Corpuscular Hemoglobin 25.4 pg (28.0-33.3); Mean Corpuscular Volume 84.1 fL (83.0-100.0); Mean Platelet Volume 10.6 fL (9.4-12.4); Platelet Count 216 K/mcL (140-400); Red Blood Count 3.27 M/mcL (4.19-5.50); Red Cell Distribution Width 14.6 % (11.5-14.5); White Blood Count 7.6 K/mcL (4.3-11.1)
[2020-06-04 03:16] LABS: Calcium 8.6 mg/dL (8.6-10.3); Potassium 4.3 mEq/L (3.5-5.1)
[2020-06-04] MEDS: *HR* Heparin 5,000 UNIT/ML VIAL SQ SCH ×2 (05:42→17:39)
[2020-06-04] MEDS: risperiDONE 1 MG TABLET PO SCH ×2 (08:57→20:31)
[2020-06-04] MEDS: Renal Vitamin 1 CAP CAPSULE PO SCH (08:58)
[2020-06-04] MEDS: Docusate Oral Soln 100 MG/10 ML UDC PO SCH ×2 (08:58→20:31)
[2020-06-04] MEDS: Acetaminophen 325 MG TABLET PO SCH ×2 (08:58→20:31)
[2020-06-04] MEDS: cloNIDine HCL 0.1 MG TABLET PO SCH (09:00)
[2020-06-04] MEDS: polyethylene glycoL 3350 17 GM POWD.PACK PO SCH (09:00)
[2020-06-04] MEDS ORDERED: 0.9 % Sodium Chloride 250 ML IVC PRN (12:20)
[2020-06-04] MEDS: rOPINIRole 0.25 MG TABLET PO SCH (20:30)
[2020-06-04] MEDS: Melatonin 3 MG TABLET PO SCH (20:31)
[2020-06-05 02:03] LABS: Hematocrit 26.2 % (37.5-50.1); Hemoglobin 8.2 g/dL (12.9-16.9); Mean Corpuscular HGB Conc 31.3 g/dL (31.6-35.5); Mean Corpuscular Hemoglobin 26.6 pg (28.0-33.3); Mean Corpuscular Volume 85.1 fL (83.0-100.0); Mean Platelet Volume 10.6 fL (9.4-12.4); Platelet Count 213 K/mcL (140-400); Red Blood Count 3.08 M/mcL (4.19-5.50); Red Cell Distribution Width 14.6 % (11.5-14.5); White Blood Count 6.3 K/mcL (4.3-11.1)
[2020-06-05 03:04] LABS: Calcium 8.4 mg/dL (8.6-10.3); Potassium 5.4 mEq/L (3.5-5.1)
[2020-06-05] MEDS: *HR* Heparin 5,000 UNIT/ML VIAL SQ SCH ×2 (05:23→17:05)
[2020-06-05] MEDS: polyethylene glycoL 3350 17 GM POWD.PACK PO SCH (08:01)
[2020-06-05] MEDS: Renal Vitamin 1 CAP CAPSULE PO SCH (08:02)
[2020-06-05] MEDS: Docusate Oral Soln 100 MG/10 ML UDC PO SCH ×2 (08:02→20:56)
[2020-06-05] MEDS: cloNIDine HCL 0.1 MG TABLET PO SCH (08:02)
[2020-06-05] MEDS: Acetaminophen 325 MG TABLET PO SCH ×2 (08:03→20:55)
[2020-06-05] MEDS: risperiDONE 1 MG TABLET PO SCH ×2 (08:03→20:56)
[2020-06-05] MEDS ORDERED: Ergocalciferol (VIT D2) 50,000 UNIT (1.25MG) CAP PO SCH (09:00)
[2020-06-05] MEDS: rOPINIRole 0.25 MG TABLET PO SCH (20:56)
[2020-06-05] MEDS: Melatonin 3 MG TABLET PO SCH (20:56)
[2020-06-06 03:28] LABS: Basophils % 0.4 %; Eosinophils # 0.3 K/mcL (0.0-0.6); Eosinophils % 4.8 %; Hematocrit 27.5 % (37.5-50.1); Hemoglobin 8.7 g/dL (12.9-16.9); Immature Granulocytes % 0.4 % (0-4); Lymphocytes # 1.8 K/mcL (0.6-4.6); Lymphocytes % 25.4 %; Mean Corpuscular HGB Conc 31.6 g/dL (31.6-35.5); Mean Corpuscular Hemoglobin 26.4 pg (28.0-33.3); Mean Corpuscular Volume 83.3 fL (83.0-100.0); Monocytes % 14.1 %; Neutrophils # 3.8 K/mcL (1.6-8.9); Platelet Count 211 K/mcL (140-400); Segmented Neutrophils % 54.9 %; White Blood Count 6.9 K/mcL (4.3-11.1)
[2020-06-06 03:49] LABS: Calcium 8.1 mg/dL (8.6-10.3); Potassium 6.3 mEq/L (3.5-5.1)
[2020-06-06] MEDS: *HR* Heparin 5,000 UNIT/ML VIAL SQ SCH ×2 (04:51→18:30)
[2020-06-06] MEDS ORDERED: 0.9 % Sodium Chloride 1,000 ML PRIME SCH (07:30)
[2020-06-06] MEDS ORDERED: 0.9 % Sodium Chloride 250 ML IVC PRN (07:30)
[2020-06-06] MEDS: risperiDONE 1 MG TABLET PO SCH ×2 (07:45→20:27)
[2020-06-06] MEDS: Docusate Oral Soln 100 MG/10 ML UDC PO SCH ×2 (07:46→20:28)
[2020-06-06] MEDS: Acetaminophen 325 MG TABLET PO SCH ×2 (07:46→20:21)
[2020-06-06] MEDS: Renal Vitamin 1 CAP CAPSULE PO SCH (07:46)
[2020-06-06] MEDS: cloNIDine HCL 0.1 MG TABLET PO SCH (11:51)
[2020-06-06] MEDS: polyethylene glycoL 3350 17 GM POWD.PACK PO SCH (11:52)
[2020-06-06] MEDS: Melatonin 3 MG TABLET PO SCH (20:26)
[2020-06-06] MEDS: rOPINIRole 0.25 MG TABLET PO SCH (20:26)
[2020-06-07 03:34] LABS: Hematocrit 27.5 % (37.5-50.1); Hemoglobin 8.5 g/dL (12.9-16.9); Mean Corpuscular HGB Conc 30.9 g/dL (31.6-35.5); Mean Corpuscular Hemoglobin 25.5 pg (28.0-33.3); Mean Corpuscular Volume 82.6 fL (83.0-100.0); Mean Platelet Volume 9.9 fL (9.4-12.4); Platelet Count 221 K/mcL (140-400); Red Blood Count 3.33 M/mcL (4.19-5.50); Red Cell Distribution Width 14.5 % (11.5-14.5); White Blood Count 6.3 K/mcL (4.3-11.1)
[2020-06-07 04:11] LABS: Calcium 8.5 mg/dL (8.6-10.3); Potassium 4.9 mEq/L (3.5-5.1)
[2020-06-07] MEDS: *HR* Heparin 5,000 UNIT/ML VIAL SQ SCH ×2 (05:16→16:10)
[2020-06-07] MEDS: polyethylene glycoL 3350 17 GM POWD.PACK PO SCH (08:48)
[2020-06-07] MEDS: Renal Vitamin 1 CAP CAPSULE PO SCH (08:48)
[2020-06-07] MEDS: cloNIDine HCL 0.1 MG TABLET PO SCH (08:49)
[2020-06-07] MEDS: Acetaminophen 325 MG TABLET PO SCH ×2 (08:49→19:52)
[2020-06-07] MEDS: risperiDONE 1 MG TABLET PO SCH ×2 (08:49→19:58)
[2020-06-07] MEDS: Docusate Oral Soln 100 MG/10 ML UDC PO SCH ×2 (08:49→19:59)
[2020-06-07] MEDS: Melatonin 3 MG TABLET PO SCH (19:56)
[2020-06-07] MEDS: rOPINIRole 0.25 MG TABLET PO SCH (19:58)
[2020-06-08 02:37] LABS: Hematocrit 29.3 % (37.5-50.1); Hemoglobin 8.8 g/dL (12.9-16.9)
[2020-06-08 02:53] LABS: Calcium 8.7 mg/dL (8.6-10.3); Potassium 5.3 mEq/L (3.5-5.1)
[2020-06-08] MEDS: *HR* Heparin 5,000 UNIT/ML VIAL SQ SCH ×2 (05:22→17:32)
[2020-06-08] MEDS: Renal Vitamin 1 CAP CAPSULE PO SCH (08:15)
[2020-06-08] MEDS: polyethylene glycoL 3350 17 GM POWD.PACK PO SCH (08:15)
[2020-06-08] MEDS: Acetaminophen 325 MG TABLET PO SCH ×2 (08:15→19:58)
[2020-06-08] MEDS: risperiDONE 1 MG TABLET PO SCH ×2 (08:15→20:01)
[2020-06-08] MEDS: Docusate Oral Soln 100 MG/10 ML UDC PO SCH ×2 (08:15→19:58)
[2020-06-08] MEDS ORDERED: 0.9 % Sodium Chloride 250 ML IVC PRN (10:38)
[2020-06-08] MEDS: cloNIDine HCL 0.1 MG TABLET PO SCH (17:31)
[2020-06-08] MEDS: Melatonin 3 MG TABLET PO SCH (19:58)
[2020-06-08] MEDS: rOPINIRole 0.25 MG TABLET PO SCH (19:59)
[2020-06-09 03:00] LABS: Calcium 8.7 mg/dL (8.6-10.3); Potassium 4.6 mEq/L (3.5-5.1)
[2020-06-09] MEDS: *HR* Heparin 5,000 UNIT/ML VIAL SQ SCH ×2 (05:44→17:07)
[2020-06-09] MEDS: Acetaminophen 325 MG TABLET PO SCH ×2 (08:31→19:40)
[2020-06-09] MEDS: polyethylene glycoL 3350 17 GM POWD.PACK PO SCH (08:31)
[2020-06-09] MEDS: risperiDONE 1 MG TABLET PO SCH ×2 (08:31→19:41)
[2020-06-09] MEDS: Renal Vitamin 1 CAP CAPSULE PO SCH (08:31)
[2020-06-09] MEDS: Docusate Oral Soln 100 MG/10 ML UDC PO SCH ×2 (08:31→19:40)
[2020-06-09] MEDS: cloNIDine HCL 0.1 MG TABLET PO SCH (08:32)
[2020-06-09] MEDS ORDERED: 0.9 % Sodium Chloride 250 ML IVC PRN (15:33)
[2020-06-09] MEDS: Melatonin 3 MG TABLET PO SCH (19:40)
[2020-06-09] MEDS: rOPINIRole 0.25 MG TABLET PO SCH (19:41)
[2020-06-10 04:36] LABS: Calcium 8.9 mg/dL (8.6-10.3); Potassium 4.5 mEq/L (3.5-5.1)
[2020-06-10] MEDS: *HR* Heparin 5,000 UNIT/ML VIAL SQ SCH ×2 (05:33→16:18)
[2020-06-10] MEDS: Renal Vitamin 1 CAP CAPSULE PO SCH (09:56)
[2020-06-10] MEDS: risperiDONE 1 MG TABLET PO SCH (09:57)
[2020-06-10] MEDS: Docusate Oral Soln 100 MG/10 ML UDC PO SCH (09:57)
[2020-06-10] MEDS: Acetaminophen 325 MG TABLET PO SCH (09:57)
[2020-06-10] MEDS: polyethylene glycoL 3350 17 GM POWD.PACK PO SCH (09:58)
[2020-06-10] MEDS: cloNIDine HCL 0.1 MG TABLET PO SCH (09:58)
[2020-06-10 16:09] VITALS: BP 130/67
[2020-06-10 17:15] LABS: Adenovirus Not Detected (Not Detect); Bordetella Pertussis Not Detected (Not Detect); Chlamydophila pneumoniae Not Detected (Not Detect); Coronavirus 229E Not Detected (Not Detect); Coronavirus HKU1 Not Detected (Not Detect); Coronavirus NL63 Not Detected (Not Detect); Coronavirus OC43 Not Detected (Not Detect); Human Metapneumovirus Not Detected (Not Detect); Human Rhinovirus/Enterovirus Not Detected (Not Detect); Influenza A Subtype 2009 H1 Not Detected (Not Detect); Influenza B Not Detected (Not Detect); Mycoplasma pneumoniae Not Detected (Not Detect); Parainfluenza Virus 1 Not Detected (Not Detect); Parainfluenza Virus 2 Not Detected (Not Detect); Parainfluenza Virus 3 Not Detected (Not Detect); Parainfluenza Virus 4 Not Detected (Not Detect); Respiratory Syncytial Virus Not Detected (Not Detect); SARS-CoV-2 Not Detected (Not Detect)
== END 2020-06-10 18:05 | DRG 70 ==
LOC: 2ANU 13:11 → EMEROOARM 13:11 → SUATTDRO 16:14 → 2ANU 19:33 → SUATTDRO 06-03 12:55
PROVIDERS: ADMIT Internal Medicine; ATTEND Internal Medicine

== ENCOUNTER 2020-08-29 09:57 | Observation (INO) ==
[2020-08-29] MEDS ORDERED: Pantoprazole 40 MG VIAL IVP ONE (10:29)
[2020-08-29 11:16] LABS: Basophils % 0.4 %; Eosinophils # 0.2 K/mcL (0.0-0.6); Hematocrit 33.4 % (37.5-50.1); INR 1.1; Immature Granulocytes % 1.2 % (0-4); Lymphocytes # 1.2 K/mcL (0.6-4.6); Lymphocytes % 11.4 %; Mean Corpuscular HGB Conc 29.9 g/dL (31.6-35.5); Mean Corpuscular Hemoglobin 24.4 pg (28.0-33.3); Mean Corpuscular Volume 81.5 fL (83.0-100.0); Mean Platelet Volume 9.7 fL (9.4-12.4); Monocytes # 1.1 K/mcL (0.0-1.3); Monocytes % 10.5 %; Neutrophils # 7.5 K/mcL (1.6-8.9); Platelet Count 209 K/mcL (140-400); Prothrombin Time 13.1 Seconds (9.4-12.1); Red Cell Distribution Width 17.7 % (11.5-14.5); Segmented Neutrophils % 74.5 %; White Blood Count 10.1 K/mcL (4.3-11.1)
[2020-08-29 11:18] LABS: Activated Partial Thrombo Time 27.5 Seconds (26.0-36.0)
[2020-08-29 12:41] LABS: Albumin 3.5 g/dL (3.5-5.7); Albumin/Globulin Ratio 1.1 (1.1-2.2); Bilirubin,Total 0.3 mg/dL (0.3-1.0); Calcium 8.5 mg/dL (8.6-10.3); Globulin 3.2 g/dL (2.4-3.5); Total Protein 6.7 g/dL (6.4-8.9); Troponin I 0.03 ng/mL (< 0.04)
[2020-08-29] MEDS ORDERED: Isovue-370 500 ML BOTTLE IVP ONE (13:22)
[2020-08-29] MEDS ORDERED: Octreotide 50 MCG/ML INJ IVP ONE (14:30)
[2020-08-29] MEDS ORDERED: Octreotide 400 MCG in 0.9 % Sodium Chloride 100 ML IVC SCH (14:30)
[2020-08-29] MEDS ORDERED: Naloxone 0.4 MG/ML INJ IVP PRN (14:41)
[2020-08-29] MEDS ORDERED: Ondansetron 4 MG/2 ML VIAL IVP PRN (14:41)
[2020-08-29 15:50] LABS: Hematocrit 30.5 % (37.5-50.1); Hemoglobin 9.3 g/dL (12.9-16.9)
[2020-08-29] MEDS: Pantoprazole 40 MG VIAL IVP SCH (20:52)
[2020-08-29 21:44] LABS: Hematocrit 28.5 % (37.5-50.1); Hemoglobin 8.8 g/dL (12.9-16.9)
[2020-08-30 03:01] LABS: Basophils % 0.5 %; Eosinophils # 0.3 K/mcL (0.0-0.6); Eosinophils % 4.1 %; Hemoglobin 8.4 g/dL (12.9-16.9); Immature Granulocytes % 0.9 % (0-4); Immature Platelets 2.7 % (1.1-6.1); Lymphocytes # 1.5 K/mcL (0.6-4.6); Lymphocytes % 19.9 %; Mean Corpuscular Hemoglobin 24.2 pg (28.0-33.3); Mean Corpuscular Volume 80.7 fL (83.0-100.0); Monocytes % 13.1 %; Platelet Count 167 K/mcL (140-400); Red Blood Count 3.47 M/mcL (4.19-5.50); Red Cell Distribution Width 17.4 % (11.5-14.5); Segmented Neutrophils % 61.5 %; White Blood Count 7.7 K/mcL (4.3-11.1)
[2020-08-30 03:20] LABS: Neutrophils # 4.7 K/mcL (1.6-8.9)
[2020-08-30 03:27] LABS: Calcium 8.4 mg/dL (8.6-10.3); Potassium 5.9 mEq/L (3.5-5.1)
[2020-08-30] MEDS ORDERED: 0.9 % Sodium Chloride 250 ML IVC PRN (07:24)
[2020-08-30] MEDS ORDERED: 0.9 % Sodium Chloride 1,000 ML PRIME SCH (07:30)
[2020-08-30] MEDS: Pantoprazole 40 MG VIAL IVP SCH ×2 (08:22→20:43)
[2020-08-30 11:26] LABS: Adenovirus Not Detected (Not Detect); Bordetella Pertussis Not Detected (Not Detect); Chlamydophila pneumoniae Not Detected (Not Detect); Coronavirus 229E Not Detected (Not Detect); Coronavirus HKU1 Not Detected (Not Detect); Coronavirus NL63 Not Detected (Not Detect); Coronavirus OC43 Not Detected (Not Detect); Human Metapneumovirus Not Detected (Not Detect); Human Rhinovirus/Enterovirus Not Detected (Not Detect); Influenza A Subtype 2009 H1 Not Detected (Not Detect); Influenza B Not Detected (Not Detect); Mycoplasma pneumoniae Not Detected (Not Detect); Parainfluenza Virus 1 Not Detected (Not Detect); Parainfluenza Virus 2 Not Detected (Not Detect); Parainfluenza Virus 3 Not Detected (Not Detect); Parainfluenza Virus 4 Not Detected (Not Detect); Respiratory Syncytial Virus Not Detected (Not Detect); SARS-CoV-2 Not Detected (Not Detect)
[2020-08-30] MEDS ORDERED: Ipratropium/Albuterol Neb 3 ML IH PRN (12:04)
[2020-08-30] MEDS ORDERED: Methyl Salicylate/Menthol 57 APPL/57 GM TUBE TP PRN (12:04)
[2020-08-30 13:32] LABS: Calcium 9.2 mg/dL (8.6-10.3); Potassium 4.3 mEq/L (3.5-5.1)
[2020-08-30] MEDS ORDERED: Lidocaine -MPF 2% 2 ML VIAL ONE (13:39)
[2020-08-30] MEDS ORDERED: *HR* PHENYLEPHRINE 1,000 MCG/10 ML SYRINGE IVP ONE (13:46)
[2020-08-30] MEDS ORDERED: *HR* Vasopressin 20 UNIT/ML VIAL ONE (13:58)
[2020-08-30] MEDS: risperiDONE 1 MG TABLET PO SCH (20:44)
[2020-08-30] MEDS ORDERED: Aspirin Enteric Coated 81 MG Tablet PO SCH (21:00)
[2020-08-30] MEDS ORDERED: Sucralfate 1 GM TABLET PO SCH (21:00)
[2020-08-30] MEDS ORDERED: Melatonin 3 MG TABLET PO SCH (21:00)
[2020-08-30] MEDS ORDERED: rOPINIRole 0.25 MG TABLET PO SCH (21:00)
[2020-08-31 05:05] LABS: Hematocrit 27.5 % (37.5-50.1); Hemoglobin 8.4 g/dL (12.9-16.9); Mean Corpuscular HGB Conc 30.5 g/dL (31.6-35.5); Mean Corpuscular Hemoglobin 24.6 pg (28.0-33.3); Mean Corpuscular Volume 80.6 fL (83.0-100.0); Mean Platelet Volume 10.5 fL (9.4-12.4); Platelet Count 195 K/mcL (140-400); Red Blood Count 3.41 M/mcL (4.19-5.50); Red Cell Distribution Width 17.3 % (11.5-14.5)
[2020-08-31 05:07] LABS: White Blood Count 13.2 K/mcL (4.3-11.1)
[2020-08-31 05:24] LABS: Calcium 8.6 mg/dL (8.6-10.3); Potassium 4.9 mEq/L (3.5-5.1)
[2020-08-31] MEDS ORDERED: 0.9 % Sodium Chloride 250 ML IVC PRN (07:21)
[2020-08-31] MEDS ORDERED: 0.9 % Sodium Chloride 1,000 ML PRIME SCH (07:30)
[2020-08-31] MEDS ORDERED: Renal Vitamin 1 CAP CAPSULE PO SCH (09:00)
[2020-08-31] MEDS ORDERED: cloNIDine HCL 0.1 MG TABLET PO SCH (09:00)
[2020-08-31] MEDS ORDERED: polyethylene glycoL 3350 17 GM POWD.PACK PO SCH (09:00)
[2020-08-31] MEDS: Pantoprazole 40 MG VIAL IVP SCH (09:36)
[2020-08-31] MEDS: risperiDONE 1 MG TABLET PO SCH (09:36)
[2020-08-31 12:59] VITALS: BP 101/74
== END 2020-08-31 13:41 ==
LOC: EMEROOARM 09:57 → 2ANU 09:57 → SUATTDRO 14:16 → 2ANU 15:17
PROVIDERS: ADMIT Student in an Organized Health Care Education/Training Program; ATTEND Family Medicine
PROC: ENDOEBX (2020-08-30 13:45)

== ENCOUNTER 2020-12-23 12:16 | Observation (INO) ==
[2020-12-23] MEDS ORDERED: 0.9 % Sodium Chloride 500 ML IVC ONE ×2 (12:32→14:13)
[2020-12-23 13:14] LABS: Basophils # 0.1 K/mcL (0.0-0.2); Basophils % 0.6 %; Eosinophils # 0.2 K/mcL (0.0-0.6); Eosinophils % 2.2 %; Hematocrit 33.8 % (37.5-50.1); Immature Granulocytes % 1.3 % (0-4); Lymphocytes # 1.2 K/mcL (0.6-4.6); Lymphocytes % 14.1 %; Mean Corpuscular HGB Conc 29.6 g/dL (31.6-35.5); Mean Corpuscular Hemoglobin 24.6 pg (28.0-33.3); Mean Corpuscular Volume 83.3 fL (83.0-100.0); Mean Platelet Volume 9.9 fL (9.4-12.4); Monocytes # 1.1 K/mcL (0.0-1.3); Monocytes % 12.7 %; Neutrophils # 5.9 K/mcL (1.6-8.9); Nucleated Red Blood Cells 0.2 /100 WBC (0); Platelet Count 286 K/mcL (140-400); Red Blood Count 4.06 M/mcL (4.19-5.50); Red Cell Distribution Width 18.1 % (11.5-14.5); Segmented Neutrophils % 69.1 %; White Blood Count 8.5 K/mcL (4.3-11.1)
[2020-12-23 13:21] LABS: Calcium 9.7 mg/dL (8.6-10.3); Magnesium 2.1 mg/dL (1.6-2.6); Phosphorous 4.8 mg/dL (2.7-4.5); Potassium 3.9 mEq/L (3.5-5.1); Troponin I 0.03 ng/mL (< 0.04)
[2020-12-23] MEDS ORDERED: cefTRIAXone 1,000 MG in 0.9 % Sodium Chloride Mini Bag 100 ML IVPB ONE (13:47)
[2020-12-23] MEDS ORDERED: Naloxone 0.4 MG/ML INJ IVP PRN (15:52)
[2020-12-24 03:37] LABS: Basophils # 0.1 K/mcL (0.0-0.2); Basophils % 0.7 %; Eosinophils # 0.3 K/mcL (0.0-0.6); Eosinophils % 4.4 %; Hematocrit 32.1 % (37.5-50.1); Hemoglobin 9.6 g/dL (12.9-16.9); Lymphocytes # 1.4 K/mcL (0.6-4.6); Lymphocytes % 20.3 %; Mean Corpuscular HGB Conc 29.9 g/dL (31.6-35.5); Mean Corpuscular Hemoglobin 24.7 pg (28.0-33.3); Mean Corpuscular Volume 82.7 fL (83.0-100.0); Mean Platelet Volume 9.8 fL (9.4-12.4); Monocytes # 1.1 K/mcL (0.0-1.3); Monocytes % 16.3 %; Platelet Count 253 K/mcL (140-400); Red Blood Count 3.88 M/mcL (4.19-5.50); Red Cell Distribution Width 17.9 % (11.5-14.5); Segmented Neutrophils % 57.3 %
[2020-12-24 03:53] LABS: Calcium 9.4 mg/dL (8.6-10.3); Potassium 4.6 mEq/L (3.5-5.1)
[2020-12-24 11:56] VITALS: BP 121/66
== END 2020-12-24 13:36 ==
LOC: EMEROOARM 12:16 → 2ANU 12:16 → SUATTDRO 15:43 → 2ANU 17:04
PROVIDERS: ADMIT Internal Medicine; ATTEND Internal Medicine